=== PATIENT | male | born 1965 | race African-American/Black ===

== ENCOUNTER 2018-07-08 08:05 | Day surgery (SDC) | payer MEDICARE ==
[~2018-07-08] VITALS: Ht 167.6 cm; Wt 63.5 kg
--- NOTE | ~2018-07-08 | OP ---
PATIENT NAME: ANTONIO KWOK MEDICAL RECORD: [id number] :63 LOCATION:SUMMER ADMISSION DATE: SURGEON: ARPIT SANTO MD DATE OF OPERATION: 07/08/2018 REFERRED BY: Johnny Jacob MD PREOPERATIVE DIAGNOSES: End-stage renal disease and dependence on hemodialysis. POSTOPERATIVE DIAGNOSES: End-stage renal disease and dependence on hemodialysis. OPERATION PERFORMED: Implantation of a ProCol AV graft as a loop graft in the right forearm between the brachial artery and the median cubital vein with a "pinky pull" configuration. SURGEON: Arpit Santo MD ANESTHESIA: Regional nerve block and MAC per RETAIL MERCHANDISER. PREOPERATIVE NOTE: Mr. Kwok is a 53-year-old -[place] male from [place] who has end-stage renal disease and needs permanent access. He is brought to the operating room today in hopes that I can construct a right brachial artery to basilic vein Moreno type AV fistula, which could then be converted later to a translocated basilic vein fistula. Nerve block anesthetic is chosen in part for its vasodilatation effects. DESCRIPTION OF PROCEDURE: Under a regional block and IV sedation and monitored per RETAIL MERCHANDISER in the operating room in supine position on the OR table, the patient was prepped and draped in sterile manner. We used a Hussain drain as a proximal venous tourniquet and applied topical nitroglycerin paste. I did a duplex ultrasound examination of the veins of the upper arm and forearm and noted that they were too small and/or located too far from the ideal sites for creation of a fistula. The basilic vein was too small at the level of the antecubital space and really too small until going upwards I reached about the middle third of the humeral area. I elected to go ahead and do a forearm loop graft between the brachial artery and the median cubital vein. That vein drains to the brachial veins as well also as to the cephalic and basilic veins. I made a transverse incision and exposed the vein and artery. These were controlled with Silastic loops and treated with topical papaverine. I made a counter incision at the wrist and created a tunnel. I chose a standard ProCol prosthetic, which is a porcine mesenteric vein, it was washed and flushed with saline and heparinized saline as instructions described and it was then oriented properly, so far as the arterial inflow end and the venous outflow end. The venous anastomosis was done first. The graft was shortened and bevelled and the vein was opened and flushed proximally with heparinized saline. The anastomosis was then carried out with running 6-0 Prolene. The graft was then placed in the superficial hairpin shaped tunnel and brought back to the antecubital area where it was shortened and beveled and anastomosed end-to-side to the brachial artery. The artery having been opened and flushed proximally and distally with heparinized saline. That anastomosis also was done with running 6-0 Prolene. When completed, the graft functioned very well with a strong thrill and continuous pulsatile Doppler flow signals. There was preservation of Doppler pulsatile flow in the radial and ulnar arteries at the wrist. OPERATIVE REPORT [id number] ANTONIO KWOK The patient's wounds were irrigated with antibiotic solution, Ancef and gentamicin. They were then sutured with interrupted inverted 3-0 Vicryl and running intracuticular 4-0 Monocryl. They were further sealed with Dermabond glue and dressed with Maxorb Ag, Tegaderm, and Cavilon skin prep. The patient was then awakened and taken back to the recovery room. Blood loss during the operation was almost none or was very minimal. Sponges, instruments and needles were accounted for. No drain was used and no surgical specimen was submitted for histopathology. PLAN: The patient is to continue his home medications, diet and dialysis schedule, etc. He will return to see me in my office next week and he is given a prescription for 10 [place] 5/325 mg tablets. TRANSINT:[id number] Voice Confirmation ID: [id number] DOCUMENT ID: [id number] cc: [facility] [phone] ARPIT SANTO MD CC: JOHNNY JACOB MD and [facility] [phone] DICTATION DATE: 07/08/18 163 PAPER CUP MACHINE OPERATOR: 07/08/18 1759 [facility] 07/08/18 [facility] [address] [place] [address]
[2018-07-08 08:37] LABS: INR 1.15 (0.85-1.17); PROTIME 14.2 SECONDS (11.6-15.0)
[2018-07-08 08:47] LABS: ANION GAP 17.7 mmol/L (8-16); CALCIUM 9.2 mg/dL (8.5-10.1); CARBON DIOXIDE 24.1 mmol/L (21.0-32.0); CREATININE - SERUM 7.6 mg/dL (0.6-1.3); POTASSIUM - SERUM 5.8 mmol/L (3.5-5.1)
[2018-07-08 09:03] LABS: BASOPHILS 0.2 % (0-2); EOSINOPHILS 3.1 % (0-7); HEMATOCRIT 39.2 % (42.0-54.0); HEMOGLOBIN 12.9 g/dL (13.5-17.5); IMMATURE GRANULOCYTES 0.3 % (0-5); LYMPHOCYTES 35.1 % (15-50); MCH 29.1 pg (26.0-34.0); MCHC 32.9 g/dL (31.0-37.0); MCV 88.3 fL (80.0-100.0); MONOCYTES 10.5 % (2-11); NEUTROPHILS 50.8 % (40-80); PLATELET COUNT 165 10x3/uL (130-400); RBC 4.44 10x6/uL (4.20-6.10); WBC 9.8 10x3/uL (4.8-10.8)
[2018-07-08] MEDS ORDERED: CATAPRES TTS-10.1 MG TD (09:49)
[2018-07-08] MEDS ORDERED: LASIX80 MG PO (09:51)
[2018-07-08] MEDS ORDERED: TUMS X-STR300 MG PO (09:52)
[2018-07-08] MEDS ORDERED: [UNRECOGNIZED DRUG - CODE] (09:53)
[2018-07-08] MEDS ORDERED: PEPCID AC20 MG PO (09:54)
[2018-07-08] MEDS ORDERED: COREG12.5 MG PO (09:54)
[2018-07-08] MEDS ORDERED: CATAPRES0.1 MG PO (09:55)
[2018-07-08 10:08] VITALS: BP 184/92; Ht 167.6 cm; Wt 63.5 kg
[2018-07-08] MEDS ORDERED: HYDROCODON-ACE1 EAC7 PO (16:36)
--- NOTE | 2018-07-08 17:40 | NUR ---
LEFT HAND PIV DC'D WITH TIP INTACT. AWAITING [id number] TO ARRIVE TO PROVIDE TRANSPORTATION. ASSISTED PATIENT TO DRESS IN PERSONAL CLOTHING. SLING KEPT ON RIGHT UPPER EXTREMITY. EDUCATION PROVIDED ABOUT IMPORTANCE OF SLING BEING LEFT ON AT ALL TIMES UNTIL NERVE BLOCK WEARS OFF
--- NOTE | 2018-07-08 17:55 | NUR ---
DISCHARGED HOME VIA WHEELCHAIR TO PRIVATE VEHICLE WITH SON AND [id number]
== END 2018-07-08 17:55 | disposition home or self-care (01) ==
LOC: D.OPS 08:05
PROVIDERS: Surgery; ATTEND Internal Medicine Nephrology
DX: N18.6 End stage renal disease (principal); Z99.2 Dependence on renal dialysis; Z01.812 Encounter for preprocedural laboratory examination

== ENCOUNTER 2018-09-02 09:12 | Day surgery (SDC) | payer MEDICARE ==
[~2018-09-02 09:12] MED LIST: CATAPRES TTS-10.1 MG TD; CATAPRES0.1 MG PO; COREG12.5 MG PO; HYDROCODON-ACE1 EAC7 PO; LASIX80 MG PO; PEPCID AC20 MG PO; TUMS X-STR300 MG PO; [UNRECOGNIZED DRUG - CODE]
[2018-09-02 09:30] LABS: BASOPHILS 0.1 % (0-2); EOSINOPHILS 1.7 % (0-7); HEMATOCRIT 37.2 % (42.0-54.0); HEMOGLOBIN 12.6 g/dL (13.5-17.5); IMMATURE GRANULOCYTES 0.1 % (0-5); LYMPHOCYTES 32.2 % (15-50); MCH 30.7 pg (26.0-34.0); MCHC 33.9 g/dL (31.0-37.0); MCV 90.5 fL (80.0-100.0); MEAN PLATELET VOLUME 10.6 fL (7.4-10.4); MONOCYTES 13.1 % (2-11); NEUTROPHILS 52.8 % (40-80); PLATELET COUNT 147 10x3/uL (130-400); RBC 4.11 10x6/uL (4.20-6.10); RDW 17.3 % (11.5-14.5); WBC 7.6 10x3/uL (4.8-10.8)
[2018-09-02 09:42] LABS: ANION GAP 11.6 mmol/L (8-16); CALCIUM 8.9 mg/dL (8.5-10.1); CREATININE - SERUM 9.2 mg/dL (0.6-1.3); POTASSIUM - SERUM 4.6 mmol/L (3.5-5.1)
[2018-09-02 09:55] LABS: INR 1.05 (0.85-1.17); PROTIME 13.2 SECONDS (11.6-15.0)
[2018-09-02] MEDS ORDERED: RENA-VITE TABL0.8 MG PO (11:07)
[2018-09-02] MEDS ORDERED: HYDRALAZINE HCL50 MG PO (11:08)
[2018-09-02] MEDS ORDERED: RENVELA800 MG PO (11:09)
[2018-09-02] MEDS ORDERED: ACETAMINOPHEN500 M1 PO (11:10)
[2018-09-02 11:21] VITALS: BP 202/76; BMI 21.9
--- NOTE | 2018-09-02 11:27 | NUR ---
ELEVATED BP REPORTED TO ANESTHESIA
[2018-09-02] MEDS ORDERED: HYDROCODON-ACE1 EAC7 PO (17:16)
--- NOTE | 2018-09-02 18:50 | NUR ---
DISCHARGED HOME VIA WHEELCHAIR TO PRIVATE VEHICLE WITH SON
--- NOTE | 2018-09-05 10:36 | OP ---
PATIENT NAME: ANTONIO KWOK MEDICAL RECORD: [id number] :63 LOCATION:SUMMER ADMISSION DATE: SURGEON: ARPIT SANTO MD DATE OF OPERATION: 09/02/2018 PREOPERATIVE DIAGNOSES: End-stage renal disease and dependence on hemodialysis and thrombosis of right forearm loop arteriovenous graft. POSTOPERATIVE DIAGNOSES: End-stage renal disease and dependence on hemodialysis and thrombosis of right forearm loop arteriovenous graft. OPERATION PERFORMED: Creation of a right brachial artery to basilic vein Moreno type AV fistula in preparation for creation of a translocated basilic vein fistula. SURGEON: Arpit Santo MD ANESTHESIA: Regional nerve block per THOMAS and general with LMA per THOMAS and Dr. De Luna. REFERRING PHYSICIAN: Johnny Moon MD PREOPERATIVE NOTE: Mr. Kwok is a 53-year-old male who has end-stage renal disease and is on chronic hemodialysis at the [facility] in [place]. I fairly recently implanted a ProCol loop AV graft in the right forearm and that failed and he is brought back to the operating room now to try to create a new fistula or implant a graft in the right upper arm. DESCRIPTION OF PROCEDURE: Under anesthesia in the supine position, the patient was prepped and draped in sterile manner. A proximal venous tourniquet was applied and nitroglycerin paste applied to the skin of the arm and forearm. Ultrasound examination demonstrated a satisfactory basilic vein in the upper arm down to the antecubital space with an adequate brachial artery for a brachiobasilic fistula. The cephalic vein was a little smaller and also had a branching pattern that would not really lend itself for creation of a brachiocephalic fistula in the antecubital space or near there and certainly not to the proximal radial artery, so I opted to go ahead with creation of the basilic vein fistula. I made a longitudinal incision on the inside of the arm just above the elbow and exposed the vein and then exposed the brachial artery. The artery was controlled with doubly looped Silastic tapes. The vein was dissected to a distal point where it was ligated and divided and bevelled and treated with topical papaverine and flushed with heparinized saline and prepared for anastomosis. The artery was occluded and an arteriotomy of about 6 or 7 mm was made and the artery was flushed proximally and distally with heparinized saline. The anastomosis was performed end-to-side and the vein to side of artery with continuous running 7-0 Prolene. When completed, excellent flow was present in the new fistula and the AV fistula had a very nice geometry. There was good pulsatile flow in the brachial artery distal to the anastomosis and good pulsatile flow in the radial artery at the wrist. The wound was irrigated with Ancef/gentamicin solution and then closed without the use of a drain approximating subcutaneous tissues with both interrupted and inverted 3-0 Vicryl sutures and the skin was closed with a running intracuticular 4-0 Stratafix. The incision was sealed with glue and dressed with Maxorb Ag, Tegaderm, and OPERATIVE REPORT [id number] ANTONIO KWOK skin prep and the patient at that point awakened and taken to the recovery room. Blood loss during the operation was almost none. All sponges, instruments and needles were accounted for. No drain was used and no surgical specimen was submitted for histopathology. PLAN: For the patient to be discharged from the hospital this evening and follow up with me in my office in 7-10 days. I will be removing his dressing and examine his wound at that time, he can leave the original operative dressing intact until then. He is to continue all of his home medications and his usual dialysis schedule. He will wear in his arm in a sling until the function resumes as his block wears off and then he is to not wear the sling after that and resume activities as tolerated with his arm. He is given a prescription for 10 tablets of [place] 5/325. He can take 1 every 4 hours p.r.n. for pain. TRANSINT:[id number] Voice Confirmation ID: [id number] DOCUMENT ID: [id number] cc: [facility] ARPIT SANTO MD at 1036 CC: JOHNNY MOON MD and Y [phone] DICTATION DATE: 09/02/18 1733 LABOR OPERATOR: 09/03/18 0545 [facility] 09/02/18 [facility] [address] [place] [address]
== END 2018-09-02 18:50 | disposition home or self-care (01) ==
LOC: D.OPS 09:12
PROVIDERS: Surgery; ATTEND Internal Medicine Nephrology
DX: T82.868A Thrombosis due to vascular prosthetic devices, implants and grafts, initial encounter (principal); Y83.8 Other surgical procedures as the cause of abnormal reaction of the patient, or of later complication, without mention of misadventure at the time of the procedure; N18.6 End stage renal disease; Z99.2 Dependence on renal dialysis

== ENCOUNTER 2018-10-14 08:30 | Day surgery (SDC) | payer MEDICARE ==
[~2018-10-14] VITALS: Ht 165.1 cm; Wt 67.6 kg
--- NOTE | ~2018-10-14 | OP ---
PATIENT NAME: ANTONIO KWOK MEDICAL RECORD: [id number] :63 LOCATION:SUMMER ADMISSION DATE: SURGEON: ARPIT SANTO MD DATE OF OPERATION: 10/14/2018 REFERRING PHYSICIAN: Johnny Jacob MD PREOPERATIVE DIAGNOSES: End-stage renal disease and dependence on hemodialysis. POSTOPERATIVE DIAGNOSES: End-stage renal disease and dependence on hemodialysis. OPERATION PERFORMED: Planned revision of right arm brachiobasilic AV fistula with open revision without thrombectomy. PREOPERATIVE NOTE: Mr. Kwok is a 53-year-old -[place]kin[place] male with end-stage renal disease, who is catheter dependent with a right-sided tunneled dialysis catheter at present. He has had a right brachiobasilic fistula constructed a few weeks ago and is returned to the operating room at this time as planned for translocation procedure. DESCRIPTION OF PROCEDURE: Under anesthesia in supine position, the patient was prepped and draped in a sterile manner. I examined him with ultrasound and outlined the course of the basilic vein from axilla to antecubital space and then made a long incision on the medial aspect of the arm and I mobilized the basilic vein from axilla down to the scar from the last operation. I then carefully extended the incision distally and began dissecting the basilic vein from the surrounding tissues. This portion of the vein was the JA segment and it was very inflamed with a great deal of surrounding fat necrosis and I really found that I was not able to dissect it with any confidence and I felt that if we were going to use this segment and all, I probably needed to leave it in situ. The vein was generally of good caliber a centimeter or more in diameter and high quality from the point of the JA segment proximally. I opted to close the wound deep to the vein and leave the vein and a very superficial subcutaneous plane to be accessed there. The wound was irrigated with Ancef and gentamicin solution, infiltrated and irrigated with Marcaine 0.25% plain and the superficial fascia of the arm approximated with interrupted inverted 3-0 Vicryl sutures tied deep to the vein. The vein was treated with topical papaverine several times during this. I then closed the skin with a running intracuticular 4-0 Stratafix suture, again leaving the vein immediately beneath the skin. There was excellent pulsation and bruit in the vein and a good continuous pulsatile Doppler signal. The incision was further sealed and dressed with a DuoDERM glue and dressed with Maxorb AG and Tegaderm, and Cavilon skin prep. The patient was awakened and taken to the recovery room with a functioning and hopefully usable AV access in the arm. PLAN: He will go home later today. I will give him a prescription for 10 [place] 5/325 tablets. He will have a return appointment to see me in my office in about 10 days. Hopefully, he can leave the original operative dressing intact until then. If need be, he can come into the office before his scheduled appointment for wound check and dressing change. Caution; the operation, as I have performed today, leads the fistula directly on top of the brachial artery and median nerve and other structures, which will then be liable to injury during cannulation of the fistula. It will be very OPERATIVE REPORT [id number] ANTONIO KWOK important for his dialysis caregivers to understand that the needles should be introduced almost parallel to the skin and that the vein is really quite superficial and they need not go deeply into the arm. TRANSINT:[id number] Voice Confirmation ID: [id number] DOCUMENT ID: [id number] ARPIT SANTO MD CC: JOHNNY JACOB MD [id number] DICTATION DATE: 10/14/18 1251 MINING DETAIL DRAFTSPERSON: 10/14/[address] [facility] [address] [place] [id number]
[~2018-10-14 08:30] MED LIST changes: +ACETAMINOPHEN500 M1 PO; +HYDRALAZINE HCL50 MG PO; +RENA-VITE TABL0.8 MG PO; +RENVELA800 MG PO
[2018-10-14 09:00] LABS: BASOPHILS 0 % (0-2); EOSINOPHILS 0.9 % (0-7); HEMATOCRIT 31.8 % (42.0-54.0); HEMOGLOBIN 10.8 g/dL (13.5-17.5); IMMATURE GRANULOCYTES 0.3 % (0-5); MCV 94.1 fL (80.0-100.0); MEAN PLATELET VOLUME 10.4 fL (7.4-10.4); MONOCYTES 18.2 % (2-11); NEUTROPHILS 57.6 % (40-80); PLATELET COUNT 125 10x3/uL (130-400); RBC 3.38 10x6/uL (4.20-6.10); RDW 17.7 % (11.5-14.5); WBC 7.9 10x3/uL (4.8-10.8)
[2018-10-14 09:22] LABS: CALCIUM 8.4 mg/dL (8.5-10.1); CARBON DIOXIDE 30.3 mmol/L (21.0-32.0); CREATININE - SERUM 6.4 mg/dL (0.6-1.3); POTASSIUM - SERUM 4.3 mmol/L (3.5-5.1)
[2018-10-14 09:26] LABS: INR 1.15 (0.85-1.17); PROTIME 14.2 SECONDS (11.6-15.0)
[2018-10-14 09:47] VITALS: BP 167/81; Ht 165.1 cm; Wt 67.6 kg
== END 2018-10-14 15:20 | disposition home or self-care (01) ==
LOC: D.OPS 08:30
PROVIDERS: Surgery; ATTEND Internal Medicine Nephrology
DX: N18.6 End stage renal disease (principal)

== ENCOUNTER 2019-05-06 18:00 | Inpatient (IN) | payer MEDICARE ==
[~2019-05-06] VITALS: Ht 165.1 cm; Wt 58.1 kg
--- NOTE | ~2019-05-06 | EC ---
PATIENT:ANTONIO WAKEFIELD DATE OF SERVICE: 05/06/19 SEX: M MEDICAL RECORD: [id number] DATE OF : 63 LOCATION:D.M2 D.211 AGE OF PATIENT: 54 ADMISSION DATE: 05/06/19 REFERRING PHYSICIAN: INTERPRETING PHYSICIAN: KURT QUIROS MD ECHOCARDIOGRAM REPORT ECHO CHARGES 4 ECHO COMPLETE Date: 05/07/19 CLINICAL DIAGNOSIS: DIALATED CARDIOMYOPATHY ECHOCARDIOGRAPHIC MEASUREMENTS (adult normal given) AC root (d.<3.7cm) 3.2 cm LV Septum d (<1.2 cm> 1.4 cm Valve Excursion 1.7 cm LV Septum (systole) 1.8 cm Left Atria (s.<4.0cm> 4.9 cm LVPW d(<1.2cm) 1.5 cm RV (d.<2.3cm) 3.7 cm LVPW (sytole) 1.9 cm LV diastole(<5.6CM) 5.2 cm MV E-F(>70mm/sec) cm LV systole 3.4 cm LVOT Diameter 1.8 cm MV exc.(>10mm) 1.2 cm Est.ejection fraction (50-75%) % DOPPLER: LVIT cm/sec A 84.0 cm/sec E 112.0 cm/sec LA cm/sec RVSP 33 mmHg LVOT 95 cm/sec AOP1/2T m/s Asc. Ao 131 cm/sec RVOT 97 cm/sec RA cm/sec PA 112 cm/sec AV Gradient Peak 6.86 mmHg AV Mean 3.50 mmHg AV Area 1.8 cm MV Gradient Peak 7.17 mmHg MV Mean 2.26 mmHg MV Area cm COMMENTS: [employer] Tester: Xiang HUITRON Supervisor Operations: Adilene Quiros TAPE# PACS Pericardial Effusion N DATE OF SERVICE: 05/07/2019 FINDINGS: 1. Left ventricular chamber size is within normal limits. Left ventricular systolic function is normal at 55% to 60%. 2. Left atrium is enlarged at 4.9 cm. Right atrium and right ventricular chamber sizes are as well mildly dilated. 3. Valvular structures have normal structure and motion. 4. Doppler interrogation reveals mild mitral regurgitation, mild tricuspid regurgitation, no other valvular insufficiency or stenosis. Pulmonary systolic ECHOCARDIOGRAM REPORT [id number] ANTONIO WAKEFIELD pressure is estimated at 33 mmHg. 5. No evidence of pericardial effusion or left ventricular thrombus. TRANSINT:[id number] Voice Confirmation ID: [id number] DOCUMENT ID: [id number] KURT QUIROS MD CC: [id number] DICTATION DATE: 05/08/19 1001 BUS ASSISTANT: 05/08/[address] [facility] [address] [place] [id number]
--- NOTE | ~2019-05-06 | OP ---
PATIENT NAME: ANTONIO WAKEFIELD MEDICAL RECORD: [id number] :63 LOCATION:D.M2 D.2116 ADMISSION DATE:05/06/19 SURGEON: KURT OWUSU MD DATE OF OPERATION: 05/08/2019 PROCEDURES: 1. PTCA and stent to the LAD. 2. PTCA and stent to the RCA. 3. IFR. 4. Left heart catheterization. 5. Selective coronary angiography. 6. Left ventriculogram. INDICATIONS: Unstable angina and coronary artery disease. PROCEDURE IN DETAIL: After informed consent was obtained and after a detailed description of the risks, benefits as well as alternative therapies, the patient elected to proceed with angiogram and angioplasty. The right femoral area was prepped and draped in normal sterile fashion. Right femoral artery was cannulated via modified Seldinger technique with placement of 6-Azeri sheath. All catheters exchanged through this sheath. FINDINGS: Left ventriculogram was performed in standard 30-degree LOCKWOOD view, reveals good cardiac wall motion, ejection fraction is 60%. SELECTIVE CORONARY ANGIOGRAPHY: 1. Left main is with no significant angiographic disease. 2. Left anterior descending has 90% to 95% stenosis in the mid vessel. 3. Left circumflex has eddg-[id number]-pfpizsog irregularities but no flow-limiting stenosis. 4. Right coronary has 80% stenosis times 2 in the mid vessel. IFR is abnormal. PTCA AND STENT OF THE RCA: The stent used was 3.0 x 15 and 3.0 x 38. Result was 0% residual stenosis. PTCA AND STENT OF THE LAD: The stent used was a 2.75 x 22. Result was 0% residual stenosis. OVERALL IMPRESSION: Successful PTCA stent of the LAD and RCA, both going from 80% and 95% initial stenosis to 0% residual. TRANSINT:[id number] Voice Confirmation ID: [id number] DOCUMENT ID: [id number] KURT OWUSU MD CC: [id number] DICTATION DATE: 05/08/19 145 FARMWORKER FRUIT: 05/08/192125 ADM IN [place] [id number] [place] [address]
--- NOTE | ~2019-05-06 | CN ---
PATIENT NAME:ANTONIO KWOK MEDICAL RECORD: [id number] : 63 LOCATION:[facility] D.2117 ADMIT DATE: 05/06/19 ACCOUNT: [id number] CONSULTING PHYSICIAN: KURT OWUSU MD REFERRING PHYSICIAN: PAO CHAVEZ MD DATE OF CONSULTATION: 05/07/2019 DIAGNOSES: 1. Non-Q-wave myocardial infarction. 2. Coronary artery disease. 3. Cardiomyopathy. 4. Hypertension. 5. End-stage renal failure, dialysis. HISTORY OF PRESENT ILLNESS: Mr. Kwok has a history of a cardiomyopathy; however, does not have a history of ischemic heart disease and has not had previous myocardial infarction or stents, began having chest discomfort for the past 48 hours. His troponin is positive for non-Q-wave myocardial infarction. His EKG is with no acute ST-T abnormalities. PHYSICAL EXAMINATION: CONSTITUTIONAL/GENERAL APPEARANCE: Well nourished, well developed, appears stated age. EYES: Lids and conjunctivae noninjected. No discharge. No pallor. ENT: Lips within normal limit. No cyanosis. No pallor. NECK: Carotid arteries, bilateral normal upstroke. No bruits. No thrills. No jugular venous pressure or distention. CERVICAL LYMPH NODES: Nontender. Nonenlarged. THYROID: Not enlarged. No nodules. CARDIOVASCULAR: Precordial exam, nondisplaced. No heaves or pericardial thrills. Rate and rhythm, regular. Heart sounds, normal S1, normal S2. No S3, no gallop, no rub. Systolic murmur, not heard. Diastolic murmur, not heard. RESPIRATORY: Respiratory effort, unlabored. Normal curvature. No thoracic deformity. No chest wall tenderness. Percussion, resonant. Auscultation, clear. No wheezes, no rales, no rhonchi. ABDOMEN: Soft, nondistended, nontender. No abdominal pain, no vomiting and normal appetite. MUSCULOSKELETAL: No joint tenderness, normal gait, normal tone. SKIN: Warm and dry. OVERALL IMPRESSION: Non-Q-wave myocardial infarction. At this time, we will get an echocardiogram today to reassess his ejection fraction, load him with Plavix. Plan for cardiac catheterization in the a.m. TRANSINT:[id number] Voice Confirmation ID: [id number] DOCUMENT ID: [id number] KURT OWUSU MD CC: [id number] DICTATION DATE: 05/07/19 1021 MILLER HELPER DISTILLERY: 05/07/19 1200 ADM IN [facility] [address] [facility]
--- NOTE | ~2019-05-06 | HEMODYNAMI ---
PATIENT:ANTONIO WAKEFIELD MEDICAL RECORD: [id number] : 63 LOCATION:[place] [address] ADMISSION DATE: 05/06/19 Generatedon:05/08/201915:10 Patient name: ANTONIO WAKEFIELD Patient #: [id number] SSN: : 1965 Date of study: 05/08/2019 Page: Of Hemodynamic Procedure Report Patient Data Patient Demographics Procedure consent was obtained First Name: ANTONIO Gender: Male Last Name: ASHU : 1965 Patient #: [id number] Age: 54 year(s) Race: Black Additional ID: [id number] Contact details [address]: [address] [place] [address] State: [place] City: [place] Zip code: [address] Past Medical History Allergies: No known allergies Admission Admission Data Admission Date: 05/06/2019 Admission Time: 19:25 Room #: [facility] Height (in.): 65 BSA: 1.64 (m2) Height (cm.): 165.1 BMI: 21.3 (kg/m2) Weight (lbs.): 128 Weight (kg.): 58.06 Lab Results Lab Result Date: 05/08/2019 Lab Result Time: 0:00 Biochemistry Name Units Result Min Max BUN mg/dl 63 --(----)-* 7 18 Creatinine mg/dl 8.8 --(----)-* 0.6 1.3 eGFR ml/min 7.565334 *-(----)-- 90 120 AM CBC Name Units Result Min Max Hematocrit % 26 *-(----)-- 42 54 Hemoglobin g/dl 8.9 *-(----)-- 13.5 17.5 Procedure Procedure Types Cath Procedure Diagnostic Procedure [facility] w/Coronaries FFR/IVUS FFR Initial FFR Additional Sedation Charges Moderate Sedation up to 15 minutes PCI Procedure Coronary Stent Coronary Stent Initial x2 Hemochron ACT Test Procedure Description Procedure Date Procedure Date: 05/08/2019 Procedure Start Time: 14:27 Procedure End Time: 15:03 Procedure Staff Name Function Pradip Quiros MD Performing Physician Ruchi Le RT Monitor Josseline Smith RT Scrub All Workman RN Nurse Procedure Data Cath Procedure Fluoroscopy Diagnostic fluoroscopy Total fluoroscopy Time: 5.7 time: 5.7 min min Diagnostic fluoroscopy Total fluoroscopy dose: 306 dose: 306 mGy mGy Contrast Material Contrast Material Type Amount (ml) Isovue 300 123 Entry Location Entry Primary Successful Side Size Upsize Upsize Entry Closure Succes sful Closure Location (Fr) 1 (Fr) 2 (Fr) Remarks Device Remarks Femoral Right 5 Fr 6 Fr Exoseal artery Short Estimated blood loss: 10 ml Diagnostic catheters Device Type Used For End Catheter Placement MULTIPACK Pigtail 5 Fr Procedure catheter MULTIPACK JL 4.0 5Fr Procedure catheter MULTIPACK 3DRC 5Fr Procedure catheter Procedure Complications No complications Procedure Medications Medication Administration Route Dosage Oxygen etCO2 Nasal cannula 2 l/min Heparin Flush Bag added to field 2 bags (1000units/500ml NS) 0.9% NaCl I.V. 100 ml/hr Lidocaine 2% added to field 20 Fentanyl I.V. 50 mcg Versed I.V. 1 mg Fentanyl I.V. 50 mcg Versed I.V. 1 mg Heparin Bolus I.V. 4000 units Integrilin (Bolus I.V. 5 ml 2mg/ml) Integrilin (Bolus wasted 5 ml 2mg/ml) Plavix P.O. 600 mg Clonidine P.O. 0.2 mg Hemodynamics Rest BSA: 1.64 (m2) O2 Consumption: Estimated: 191.26 (ml/min) O2 Consumption indexed : Estimated:116.62 (ml/min/m) Heart Rate: 65 (bpm) Snapshots Pre Cath Intra NCS Post Cath Vital Signs Time Heart Resp SPO2 etCO2 NIBP (mmHg) Rhythm Pain Sedation Rate (ipm) (%) (mmHg) Status Level (bpm) 14:17:54 63 16 100 26.2 Measuring NSR (Missing) 10(A) 14:18:17 66 16 100 24.7 221/105(187) NSR (Missing) 10(A) 14:22:49 66 16 100 26.2 207/103(173) NSR (Missing) 10(A) 14:27:16 63 16 100 7.4 204/100(174) NSR (Missing) 9(A) 14:31:42 68 16 100 22.4 213/105(174) NSR (Missing) 9(A) 14:36:13 67 16 100 20.2 214/98(179) NSR (Missing) 9(A) 14:40:43 71 17 100 20.2 187/101(156) NSR (Missing) 9(A) 14:45:42 68 16 100 20.9 Measuring NSR (Missing) 9(A) 14:46:17 68 16 100 14.2 203/108(175) NSR (Missing) 9(A) 14:50:43 67 17 100 32.2 210/108(172) NSR (Missing) 9(A) 14:55:11 68 17 100 28.4 208/99(168) NSR (Missing) 9(A) 14:59:39 68 17 100 24.7 210/101(173) NSR (Missing) 9(A) Medications Time Medication Route Dose Verified Delivered Reason Notes Effectiveness by by 14:19:12 Oxygen etCO2 2 Pradip Carrizales Per physician Nasal l/min Ishaan Workman RN cannula 14:19:20 Heparin Flush added 2 Pradip All used for Bag to bags Ishaan Workman RN procedure (1000units/500ml field NS) 14:19:30 0.9% NaCl I.V. 100 Pradip All Per physician ml/hr Ishaan Workman RN 14:19:40 Lidocaine 2% added 20ml Pradip Carrizales for local to vial Ishaan Workman RN anesthetic field 14:25:31 Fentanyl I.V. 50 Pradip Ordazy for sedation mcg Ishaan Workman RN 14:25:38 Versed I.V. 1 mg Pradip Ordazy for sedation Ishaan Workman RN 14:29:05 Fentanyl I.V. 50 Pradip All for sedation mcg Ishaan Workman RN 14:29:08 Versed I.V. 1 mg Pradip All for sedation Ishaan Workman RN 14:33:23 Heparin Bolus I.V. 4000 Pradip Carrizales for units Ishaan Workman RN anticoagulation 14:34:44 Integrilin I.V. 5 ml Pradip Carrizales for (Bolus 2mg/ml) Tauth MD Workman RN anticoagulation 14:40:05 Integrilin wasted 5 ml Pradip salazar (Bolus 2mg/ml) Ishaan Workman RN anticoagulation 15:02:23 Plavix P.O. 600 Pradip salazar mg Ishaan Workman RN antiplatelet therapy 15:07:32 Clonidine P.O. 0.2 Pradip Carrizales for mg Ishaan Workman RN hypertension Procedure Log Time Note 13:49:40 Informed consent obtained and on chart 13:50:23 Procedure Status Urgent Heart Cath (IP). 13:50:28 Time tracking: Regular hours (M-F 7:00 - 5:00) 13:50:32 Plan of Care:Hemodynamics will remain stable., Cardiac rhythm will remain stable., Comfort level will be maintained., Respiratory function will remain adequate., Patient/ family verbilizes understanding of procedure., Procedure tolerated without complication., Recovers from procedure without complications.. 13:51:52 H&P Date Dictated: 05/08/2019 Within 30 days and on chart.. 13:51:58 Patient allergic to No known allergies 13:53:28 Lab Result : BUN 63 mg/dl 13:53:28 Lab Result : Creatinine 8.8 mg/dl 13:53:28 Lab Result : eGFR AM 7.026079 ml/min 13:53:28 Lab Result : Hemoglobin 8.9 g/dl 13:53:28 Lab Result : Hematocrit 26 % 13:54:02 Patient Height : 65 inches 13:54:07 Patient Weight : 128 lbs 13:55:36 All Workman RN sent for patient. Start room use. 13:59:29 Risk of Mortality: 1.3 13:59:32 Risk of blood transfusion: 12.5 13:59:36 Risk of AMARILIS: 16.8 14:04:40 Stress Test: no; N/A NSTEMI 14:09:54 Patient received from Med II to CCL 3 Alert and oriented. Tansferred to table in Supine position. 14:09:56 Warm blankets applied, and deep hugger turned on for patient comfort. 14:09:56 Correct patient and procedure confirmed by team. 14:09:57 ECG and BP/O2 sat monitors applied to patient. 14:16:05 Vital chart was started 14:19:12 Oxygen 2 l/min etCO2 Nasal cannula was administered by All Workman RN; Per physician; Verbal order read back and verified. 14:19:15 Full Disclosure recording started 14:19:15 Pre-procedure instructions explained to patient. 14:19:16 Pre-op teaching completed and patient verbalized understanding. 14:19:19 Family in patients room. 14:19:20 Heparin Flush Bag (1000units/500ml NS) 2 bags added to field was administered by All Workman RN; used for procedure; Verbal order read back and verified. 14:19:21 Patient NPO since Midnight. 14:19:23 Is the patient allergic to Iodine/contrast media? No. 14:19:24 Is patient on blood thinner?No 14:19:26 Patient diabetic? No. 14:19:30 0.9% NaCl 100 ml/hr I.V. was administered by All Workman RN; Per physician; Verbal order read back and verified. 14:19:30 Previous problem with sedation/anesthesia? No ? 14:19:31 Snore? No 14:19:32 Sleep apnea? No 14:19:34 Deviated septum? No 14:19:34 Opens mouth fully? Yes 14:19:35 Sticks out tongue? Yes 14:19:39 Airway obstruction? No ? 14:19:40 Lidocaine 2% 20ml vial added to field was administered by All Workman RN; for local anesthetic; Verbal order read back and verified. 14:19:42 Dentures? No ? 14:19:52 Rhythm: sinus rhythm 14:19:59 Pre procedure: right dorsailis pedis pulse 1+ Palpable, but thready & weak; easily obliterated 14:20:01 Patient pain scale 0/10 ?. 14:20:05 IV patent on arrival in left antecubital with 0.9% NaCl at [facility]. 14:20:08 Lab results completed and on chart. 14:20:12 Right groin area was prepped with chlora-prep and draped in sterile fashion 14:20:13 Alarms reviewed by R. N. 14:20:13 Sharps counted by scrub and verified by R.N. 14:20:25 DIALYSIS FISTULA RIGHT ARM 14:23:08 Use device set Femoral Dx 14:23:10 ACIST Syringe (16961) opened to sterile field. 14:23:10 Bag Decanter (2002S) opened to sterile field. 14:23:11 ACIST Hand Control (28929) opened to sterile field. 14:23:11 ACIST Manifold (03266) opened to sterile field. 14:23:12 Tegaderm 4 x 4 (1626W) opened to sterile field. 14:23:13 Medline Cath Pack ([id number]) opened to sterile field. 14:23:14 DIAGNOSTIC Multipack 5Fr catheter set (DG9935) opened to sterile field. 14:23:20 SHEATH 5FR [place] (CRD425) opened to sterile field. 14:23:21 EMERALD Guide Wire (848-555) opened to sterile field. 14:24:22 Baseline sample Acquired. 14:24:38 Baseline sample Acquired. 14::28 --------ALL STOP TIME OUT------ 14:25:29 Final Timeout: patient, procedure, and site verified with staff and physician. All members of the team are in agreement. 14:25:30 Right groin site verified by team. 14::31 Fentanyl 50 mcg I.V. was administered by All Workman RN; for sedation; Verbal order read back and verified. 14:25:35 Fire Safety Assessment: A--An alcohol-based skin anteseptic being used preoperatively., C--Open oxygen or nitrous oxide is being used., D--An ESU, laser, or fiber-optic light is being used. 14:25:37 Physical assessment completed. ASA score P 3 - A patient with severe systemic disease as per Pradip Quiros MD. 14::38 Versed 1 mg I.V. was administered by All Workman RN; for sedation; Verbal order read back and verified. 14::41 5) <15 or on dialysis Very severe, or end stage kidney failure. 14:25:45 Sedation plan: IV Moderate Sedation Medication:Versed, Fentanyl 14:26:06 Maximum allowable contrast dose (3.7 X eGFR X 0.75)22 ml. 14::58 Zero performed for pressure channel P1 14:27:02 Procedure started. 14:27:14 Local anesthetic to right femoral artery with Lidocaine 2% by Pradip Quiros MD.INITIAL ACCESS ONLY 14:27:47 A 5 Fr sheath was inserted into the Right Femoral artery 14::59 A MULTIPACK Pigtail 5 Fr catheter was advanced over the wire and used for Procedure. 14:28:22 LV gram done using LOCKWOOD 14::24 Injector settings: Ml/sec: 10, Volume: 20, 14::52 EF : 55 % 14:28:57 Catheter removed. 14:29:05 Fentanyl 50 mcg I.V. was administered by All Workman RN; for sedation; Verbal order read back and verified. 14:29:08 Versed 1 mg I.V. was administered by All Workman RN; for sedation; Verbal order read back and verified. 14:29:10 A MULTIPACK JL 4.0 5Fr catheter was advanced over the wire and used for Procedure. 14:29:58 LCA angiography performed. 14:30:36 Catheter removed. 14:30:46 A MULTIPACK 3DRC 5Fr catheter was advanced over the wire and used for Procedure. 14:31:17 RCA angiography performed. 14:31:23 ACCDominant side:Left 14:31:24 Catheter removed. 14:31:25 SHEATH 6FR [place] (HMO818) opened to sterile field. 14:31:27 [place] Verrata Plus pressure wire (26122Y) opened to sterile field. 14:31:28 INFLATOR Merit BasixCompak (PR3369) opened to sterile field. 14:31:52 GUIDE 6FR EBU 3.5 catheter ([id number]) opened to sterile field. 14:31:59 Sheath upsized to a 6 Fr Short. 14:32:39 GUIDE 6FR HS II catheter (LF0VVAK) opened to sterile field. 14:32:48 6 Fr EBU 3.5 guide catheter was inserted over the wire 14:33:23 Heparin Bolus 4000 units I.V. was administered by All Workman RN; for anticoagulation; Verbal order read back and verified. 14:33:27 FFR/IFR wire advanced. 14:34:02 Wire advanced across lesion. 14:34:35 pRCA lesion measured at .90 with IFR 14:34:44 Integrilin (Bolus 2mg/ml) 5 ml I.V. was administered by All Workman RN; for anticoagulation; Verbal order read back and verified. 14:36:02 dRCA lesion measured at .81 with IFR 14:36:48 Pre PCI Site: [place] dRCA has 70% stenosis. 14:37:05 Place stent Inflation Number: 1 A GARETT RX 3.0 x 15 stent ([id number]) was prepped and advanced across the Dist RCA . The stent was deployed at 13 TEE for 0:00 (min:sec) . 14:37:34 Inflation number: 2 The stent balloon was then re-inflated across the Dist RCA to 11 TEE for 0:00 (min:sec) . 14:38:41 Stent catheter was removed intact over wire. 14:39:56 Place stent Inflation Number: 3 A GARETT RX 2.75 x 38 stent ([id number]) was prepped and advanced across the Dist RCA . The stent was deployed at 13 TEE for 0:00 (min:sec) . 14:40:05 Integrilin (Bolus 2mg/ml) 5 ml wasted was administered by All Workman RN; for anticoagulation; Verbal order read back and verified. 14:40:19 Stent catheter was removed intact over wire. 14:40:20 Wire removed. 14:40:20 Guide catheter removed. 14:41:04 6 Fr EBU 3.5 guide catheter was inserted over the wire 14:41:50 CHOICE PT Extra Support 182cm wire ([id number]) opened to sterile field. 14:41:58 Pre PCI Site: [place] mLAD has 90% stenosis. 14:42:17 CHOICE ES 182 wire advanced. 14:43:02 Wire advanced across lesion. 14:43:33 Inflation number: 1 The stent balloon was then re-inflated across the Mid LAD to 13 TEE for 0:00 (min:sec) . 14:43:57 Balloon removed over the wire. 14:45:11 Place stent Inflation Number: 2 A GARETT RX 2.75 x 22 stent ([id number]) was prepped and advanced across the Mid LAD . The stent was deployed at 21 TEE for 0:00 (min:sec) . 14:45:26 Stent catheter was removed intact over wire. 14:45:36 Wire removed. 14:45:37 Guide catheter removed. 14:45:57 EXOSEAL 6Fr (EX600) opened to sterile field. 14:46:12 Sheath removed intact; hemostasis achieved with Exoseal to the Right Femoral artery. 14:46:14 Procedure ended.(Physican Out) 14:46:26 ACT drawn and resulted at 361 seconds. (normal therapeutic range 180-240 seconds). 14:46:33 Fluoroscopy time 05.70 minutes. 14:46:39 Fluoroscopy dose: 306 mGy 14:46:39 Flurop Dose total: 306 14:46:44 Dose Area Product 1882.70 mGy/cm. 14:46:48 Contrast amount:Isovue 300 123ml. 14:46:50 Maximum allowable dose exceeded? Yes. 14:46:51 Sharps counted by scrub and verified by R.N. 14:48:27 Post-op/insertion site Right Femoral artery dressed using a 4 x 4 and Tegaderm. 14:48:30 Post-procedure physical assessment completed. ASA score P 3 - A patient with severe systemic disease as per Pradip Quiros MD. 14:48:32 Post procedure rhythm: sinus rhythm 14:48:35 Estimated blood loss: 10 ml 14:48:36 Post procedure instruction explained to patient.Patient verbalizes understanding. 14:48:36 Patient needs reinforcement of post procedure teaching. 14:49:05 Procedure type changed to Cath procedure, Diagnostic procedure, LHC, [facility] w/Coronaries, FFR/IVUS, FFR Initial, FFR Additional, Sedation Charges, Moderate Sedation up to 15 minutes, PCI procedure, Coronary Stent, Coronary Stent Initial x2, Hemochron ACT Test 14:49:51 Procedure and supply charges have been captured, reviewed, submitted and are correct. 14:49:53 Procedure Complication : No complications 14:49:57 [facility] Findings: MVD- PCI performed (see procedure note) 14:49:59 Operative report dictated upon procedure completion. 14:50:00 See physician's report for complete and final results. 15:02:23 Plavix 600 mg P.O. was administered by All Workman RN; for antiplatelet therapy; Verbal order read back and verified. 15:02:30 Vital chart was stopped 15:02:35 Report given to [facility]. 15:02:39 Patient transfered to [facility] with Bed. 15:03:18 FEMSTOP Gold ([id number]) opened to sterile field. 15:03:25 Femstop placed over the right femoral artery at 172 mmHg. Hemostasis achieved. 15:03:45 Procedure ended. 15:03:45 Full Disclosure recording stopped 15:04:09 End room use (Document Last) 15:07:32 Clonidine 0.2 mg P.O. was administered by All Workman RN; for hypertension; Verbal order read back and verified. 15:10:09 End room use (Document Last) 15:10:33 End room use (Document Last) Intervention Summary Intervention Notes Time ActionType Lesion and Equipment Used Action# Pressure Duration Attributes 14:37:05 Place stent Dist RCA GARETT RX 3.0 x 1 13 00:00 15 stent ([id number]) 14:37:34 Reinflate Dist RCA GARETT RX 3.0 x 2 11 00:00 stent 15 stent balloon ([id number]) 14:39:56 Place stent Dist RCA GARETT RX 2.75 x 3 13 00:00 38 stent ([id number]) 14:43:33 Reinflate Mid LAD GARETT RX 3.0 x 1 13 00:00 stent 15 stent balloon ([id number]) 14:45:11 Place stent Mid LAD GARETT RX 2.75 x 2 21 00:00 22 stent ([id number]) Device Usage Item Name Manufacture Quantity Catalog Number Hospital Part Current Minimal Lot# / Charge Number Stock Stock Serial# Code ACIST Syringe Acist 1 66467 351678 518373 719881 20 (65518) Medical Systems Inc Bag Decanter Microtek 1 2001S 169905 84466 782439 5 (2001S) Medical Inc. ACIST Hand Acist 1 72426 137224 723587 538535 5 Control Medical (04297) Systems Inc ACIST Manifold Acist 1 91381 557608 550519 496223 5 (43509) Medical Systems Inc Tegaderm 4 x 4 3M 1 1626W 655421 364499 337732 5 (1626W) Medline Cath Medline 1 [id number] 341470 87693 852962 5 Pack ([id number]) DIAGNOSTIC Cardinal 1 NF5643 663491 32045 041511 30 Multipack 5Fr Health catheter set (DW7066) SHEATH 5FR Terumo 1 FJN311 694042 578511 820867 5 [place] (UBT013) EMERALD Guide Cardinal 1 502-455 881786 697830 857573 5 Wire (502-147) Health MULTIPACK Cardinal 1 741620 5 Pigtail 5 Fr Health catheter MULTIPACK JL Cardinal 1 899317 5 4.0 5Fr Health catheter MULTIPACK 3DRC Cardinal 1 012858 5 5Fr catheter Health SHEATH 6FR Terumo 1 YVE434 708718 761997 511211 40 [place] (EPZ659) [place] Yamhill 1 52202L 682322 374180988 230528 5 Verrata Plus pressure wire (22175Y) INFLATOR Merit Merit 1 QX7471 107319 047985 618040 15 BasInvisalert SolutionsakTideland [employer] Corporation Medical (JR0474) GUIDE 6FR EBU Medtronic 1 PH2LRX79 251767 06715 047861 3 3.5 catheter (LN4ULK26) GUIDE 6FR HS Medtronic 1 [id number] 506284 65674 859848 1 II catheter (JO7ZBGZ) GARETT RX 3.0 x Medtronic 1 [id number] 530382 3672134 928882 5 [id number] 15 stent ([id number]) GARETT RX 2.75 x Medtronic 1 [id number] 481581 1510186 262005 5 [id number] 38 stent ([id number]) CHOICE PT [place] 1 [id number] 376828 844037 724325 5 Extra Support Scientific 182cm wire ([id number]) GARETT RX 2.75 x Medtronic 1 [id number] 264597 7125438 085279 5 [id number] 22 stent ([id number]) EXOSEAL 6Fr Cardinal 1 EX600 513792 277746 391074 10 (EX600) Health FEMSTOP Gold St Cj 1 [id number] 112234 411898 280691 5 ([id number]) Signature Audit [place] Stage Time Signature Unsigned Intra-Procedure 05/08/2019 Ruchi Le 3:10:09 PM RT(R) Intra-Procedure 05/08/2019 All Workman 3:10:33 PM RN Intra-Procedure 05/08/2019 Pradip Quiros 3:10:50 PM [facility] [address] [place] [address]
--- NOTE | 2019-05-06 19:05 | NUR ---
ADMIT TO ROOM 2116 FROM [place] [facility] PER EMS. PT ALERT/ORIENTED. SOME FAMILY IN ATTENDANCE. SALINE LOCK TO LEFT WRIST. RIGHT UPPER ARM AVF THAT IS CURRENTLY ACCESSED FROM WHEN HE WAS IN HEMODIALYSIS IN [place]. ONE LINE IS CAPPED AND CLAMPED. OTHER LINE IS CLAMPED WITH NO CAP. ADMISSION ASSESSMENT AND HISTORY COMPLETED. PLACED CALL TO LESLEY UBALDO AT 1905 AND NOTIFIED THAT PT HAD ARRIVED FROM [facility] WITH HIS AVF ACCESSED, BLOOD BACKED UP IN TUBING. ALSO REVIEWED HANDWRITTEN ORDERS THAT CAME WITH PATIENT AND RECIEVED SOME NEW ORDERS. LESLEY WILL CONTACT TOWEL STRETCHER HEMODIALYSIS NURSE TO COME TO HOSPITAL AND DEACCESS HIS RIGHT AVF. PT IS COOPERATIVE AND PLEASANT. NO REPORTS OF CHEST PAIN OR DISCOMFORT. SR PER TELEMETRY.
--- NOTE | 2019-05-06 22:08 | NUR ---
[facility]EM[facility] NURSE ON UNIT AND PROVIDING CARE TO ACCESSED AVF. PT TOLERATED WELL.
[2019-05-06 22:14] LABS: BASOPHILS 0.2 % (0-2); EOSINOPHILS 0.7 % (0-7); HEMOGLOBIN 7.9 g/dL (13.5-17.5); IMMATURE GRANULOCYTES 0.5 % (0-5); LYMPHOCYTES 27.6 % (15-50); MCH 34.2 pg (26.0-34.0); MCHC 34.3 g/dL (31.0-37.0); MCV 99.6 fL (80.0-100.0); MEAN PLATELET VOLUME 11.5 fL (7.4-10.4); MONOCYTES 13.4 % (2-11); NEUTROPHILS 57.6 % (40-80); PLATELET COUNT 106 10x3/uL (130-400); RBC 2.31 10x6/uL (4.20-6.10); RDW 19.3 % (11.5-14.5); WBC 5.8 10x3/uL (4.8-10.8)
[2019-05-06 22:15] VITALS: BP 154/80; BMI 21.3
[2019-05-06 22:45] LABS: CALCIUM 7.1 mg/dL (8.5-10.1); CARBON DIOXIDE 25.8 mmol/L (21.0-32.0); CHLORIDE - SERUM 105 mmol/L (98-107); CKMB 1.3 U/L (0.0-3.6); CREATINE KINASE 48 UL (21-232); CREATININE - SERUM 7.1 mg/dL (0.6-1.3); POTASSIUM - SERUM 3.6 mmol/L (3.5-5.1); SODIUM 140 mmol/L (136-145); UREA NITROGEN 55 mg/dL (7-18); eGFR NON AFRICAN AMERICAN 9 mL/min (90-120)
[2019-05-06 22:46] LABS: CALC OSMOLALITY 298 mosm/kg (275-300); GLUCOSE 188 mg/dL (74-106)
[2019-05-06 22:48] LABS: TROPONIN-I 0.179 ng/mL (0.000-0.060)
[2019-05-06] MEDS ORDERED: HYDRALAZINE HCL25 MG PO (23:07)
--- NOTE | 2019-05-06 23:49 | NUR ---
OUT AMBULATING IN HALLWAY. DRINK PROVIDED. DENIES CHEST PAIN. BACK TO BED.
[2019-05-07 03:51] LABS: HEMATOCRIT 22.4 % (42.0-54.0); HEMOGLOBIN 7.6 g/dL (13.5-17.5); MCH 33.9 pg (26.0-34.0); MCHC 33.9 g/dL (31.0-37.0); MEAN PLATELET VOLUME 12.6 fL (7.4-10.4); PLATELET COUNT 107 10x3/uL (130-400); RBC 2.24 10x6/uL (4.20-6.10); RDW 19.8 % (11.5-14.5); WBC 6.4 10x3/uL (4.8-10.8)
[2019-05-07 04:00] VITALS: BP 178/71
[2019-05-07 04:37] LABS: ALKALINE PHOSPHATASE 95 U/L (46-116); ALT (SGPT) 25 U/L (10-68); BILIRUBIN - DIRECT 0.37 mg/dL (0.00-0.30); BILIRUBIN - INDIRECT 0.68 mg/dL (0.00-1.00); BILIRUBIN - TOTAL 1.05 mg/dL (0.2-1.3); CALCIUM 7.1 mg/dL (8.5-10.1); CARBON DIOXIDE 25.5 mmol/L (21.0-32.0); CHLORIDE - SERUM 105 mmol/L (98-107); CREATINE KINASE 41 UL (21-232); CREATININE - SERUM 7.6 mg/dL (0.6-1.3); POTASSIUM - SERUM 3.3 mmol/L (3.5-5.1); PROTEIN - SERUM 6.4 g/dL (6.4-8.2); SODIUM 141 mmol/L (136-145); UREA NITROGEN 56 mg/dL (7-18); eGFR NON AFRICAN AMERICAN 8 mL/min (90-120)
[2019-05-07 04:41] LABS: CALC OSMOLALITY 297 mosm/kg (275-300); GLUCOSE 111 mg/dL (74-106)
[2019-05-07 04:43] LABS: TROPONIN-I 0.253 ng/mL (0.000-0.060)
[2019-05-07 04:49] LABS: LYMPHOCYTES 32 % (15-50); MONOCYTES 22 % (2-11); NEUTROPHILS 46 % (40-80); PLATELET ESTIMATE DECREASED
--- NOTE | 2019-05-07 06:30 | NUR ---
PT HAS RESTED WITH NO DISTRESS THROUGH THE NIGHT. NO ISSUES WITH HIS LEFT AVF. REPORT TO ONCOMING NURSE. CPOC.
--- NOTE | 2019-05-07 07:15 | NUR ---
RECEIVED PT IN BED EYES CLOSED RESP UNLABORED SKIN W/D NAD NOTED
[2019-05-07 08:19] VITALS: BP 185/77
[2019-05-07 09:53] LABS: CKMB 0.9 U/L (0.0-3.6); CREATINE KINASE 45 UL (21-232); PHOSPHOROUS 5.4 mg/dL (2.5-4.9)
[2019-05-07 09:54] LABS: TROPONIN-I 0.182 ng/mL (0.000-0.060)
--- NOTE | 2019-05-07 10:19 | NUR ---
DR OWUSU HERE FOR CONSULT
[2019-05-07 11:48] VITALS: BP 182/79
[2019-05-07 16:33] LABS: UDS - AMPHET NEGATIVE QUAL (NEGATIVE); UDS - BARB NEGATIVE QUAL (NEGATIVE); UDS - BENZO NEGATIVE QUAL (NEGATIVE); UDS - COCAINE NEGATIVE QUAL (NEGATIVE); UDS - OPIATE POSITIVE QUAL (NEGATIVE); UDS - PCP NEGATIVE QUAL (NEGATIVE); UDS - THC NEGATIVE QUAL (NEGATIVE)
[2019-05-07 16:44] VITALS: BP 177/83
--- NOTE | 2019-05-07 16:45 | NUR ---
UNIT OF PRBCs INFUSION STARTED AT THIS TIME PT DENIES ANY PAIN OR DISCOMFORT NO S/S OF REACTION PT TOLERATING WELL
--- NOTE | 2019-05-07 19:30 | NUR ---
REPORT AND INITIAL ROUNDS COMPLETED. 1 UNIT OF PRBCS NEARING COMPLETION. TOLERATING WELL. BP ELEVATED, DUE FOR BEDTIME MEDS SERENA. CPOC.
[2019-05-07 20:00] VITALS: BP 207/101
--- NOTE | 2019-05-07 23:17 | NUR ---
PT COMPLETED HIS HIBICLENS SHOWER. CONSENTS SIGNED FOR AM HEART CATH/ANGIOGRAM. NO NEEDS. DENIES PAIN. CALL LIGHT IN REACH. CPOC.
[2019-05-08] VITALS: BP 201/84
[2019-05-08 04:00] VITALS: BP 212/94
[2019-05-08 05:34] LABS: BASOPHILS 0.1 % (0-2); EOSINOPHILS 1.3 % (0-7); HEMOGLOBIN 8.9 g/dL (13.5-17.5); IMMATURE GRANULOCYTES 0.3 % (0-5); LYMPHOCYTES 24.1 % (15-50); MCH 33.3 pg (26.0-34.0); MCHC 34.2 g/dL (31.0-37.0); MEAN PLATELET VOLUME 11.4 fL (7.4-10.4); MONOCYTES 13.8 % (2-11); NEUTROPHILS 60.4 % (40-80); PLATELET COUNT 91 10x3/uL (130-400); RBC 2.67 10x6/uL (4.20-6.10); RDW 19.6 % (11.5-14.5); WBC 6.9 10x3/uL (4.8-10.8)
[2019-05-08 06:13] LABS: ALBUMIN 2.1 g/dL (3.4-5.0); ANION GAP 13.8 mmol/L (8-16); BILIRUBIN - TOTAL 0.65 mg/dL (0.2-1.3); CALCIUM 7.1 mg/dL (8.5-10.1); CARBON DIOXIDE 23.6 mmol/L (21.0-32.0); CREATININE - SERUM 8.8 mg/dL (0.6-1.3); PHOSPHOROUS 4.2 mg/dL (2.5-4.9); POTASSIUM - SERUM 3.4 mmol/L (3.5-5.1); PROTEIN - SERUM 6.5 g/dL (6.4-8.2)
[2019-05-08 06:20] LABS: INR 1.05 (0.85-1.17); PROTIME 13.2 SECONDS (11.6-15.0)
[2019-05-08 06:39] LABS: MCV 97.4 fL (80.0-100.0)
[2019-05-08 09:20] VITALS: BP 216/102
--- NOTE | 2019-05-08 11:54 | NUR ---
B/P CALLED TO [facility]. NEW ORDERS GIVEN.
[2019-05-08 12:10] VITALS: BP 209/94
--- NOTE | 2019-05-08 14:05 | NUR ---
PRE-OPS GIVEN. TO BUSINESS SUPERVISOR BY BED.
[2019-05-08 14:30] VITALS: Ht 165.1 cm; Wt 58.1 kg
--- NOTE | 2019-05-08 15:43 | NUR ---
BACK FROM BUSINESS OPERATIONS SPECIALIST. RIGHT GROIN STABLE WITH FEMSTOP INTACT. WILL MONITOR.
--- NOTE | 2019-05-08 17:50 | NUR ---
ATTEMPTED TO DC FEMSTOP. ACTIVE BLEEDING NOTED. FEMSTOP REAPPLIED. WILL CONT. TO MONITOR.
[2019-05-08 17:56] VITALS: BP 198/97
--- NOTE | 2019-05-08 19:37 | NUR ---
RECEIVED BEDSIDE REPORT. PATIENT IS ALERT AND ORIENTED, RESTING COMFORTABLY IN BED. RESPIRATIONS ARE EVEN AND UNLABORED. NO S/S OF DISTRESS. NO C/O PAIN. CALL LIGHT WITHIN REACH. WILL CPOC.
[2019-05-08 20:00] VITALS: BP 172/88
--- NOTE | 2019-05-08 20:27 | NUR ---
RELEASED PRESSURE FROM FEMSTOP. NO S/S OF BLEEDING, HEMATOMA, AREA AROUND INSERTION SITE SOFT. NO S/S OF DISTRESS.
--- NOTE | 2019-05-08 21:25 | NUR ---
RELEASED FEMSTOP NO SIGNS OF BLEEDING. RIGHT GROIN INSERTION SITE SOFT, NO SIGNS OF HEMATOMA OR BRUISING.
--- NOTE | 2019-05-09 00:24 | NUR ---
PATIENT APPEARS TO BE SLEEPING. RESPIRATIONS ARE EVEN AND UNLABORED. NO S/S OF DISTRESS. CALL LIGHT WITHIN REACH. WILL CPOC.
[2019-05-09 00:33] VITALS: BP 184/86
--- NOTE | 2019-05-09 00:36 | NUR ---
BP 184/86 PRN CLONIDINE GIVEN.
--- NOTE | 2019-05-09 03:46 | NUR ---
PATIENT APPEARS TO BE SLEEPING. RESPIRATIONS ARE EVEN AND UNLABORED. NO S/S OF DISTRESS. CALL LIGHT WITHIN REACH. WILL CPOC.
[2019-05-09 04:00] VITALS: BP 188/87
--- NOTE | 2019-05-09 04:46 | NUR ---
BP 188/87 PRN CLONIDINE GIVEN.
[2019-05-09 07:37] LABS: ALBUMIN 1.9 g/dL (3.4-5.0); ANION GAP 18.1 mmol/L (8-16); BILIRUBIN - TOTAL 0.61 mg/dL (0.2-1.3); CALCIUM 7.3 mg/dL (8.5-10.1); CARBON DIOXIDE 20.6 mmol/L (21.0-32.0); CREATININE - SERUM 10.3 mg/dL (0.6-1.3); POTASSIUM - SERUM 3.7 mmol/L (3.5-5.1)
[2019-05-09 07:48] LABS: BASOPHILS 0 % (0-2); EOSINOPHILS 1.2 % (0-7); HEMATOCRIT 24.5 % (42.0-54.0); HEMOGLOBIN 8.3 g/dL (13.5-17.5); IMMATURE GRANULOCYTES 0.3 % (0-5); LYMPHOCYTES 14.6 % (15-50); MCH 33.2 pg (26.0-34.0); MCHC 33.9 g/dL (31.0-37.0); MEAN PLATELET VOLUME 12.7 fL (7.4-10.4); MONOCYTES 13.8 % (2-11); NEUTROPHILS 70.1 % (40-80); PLATELET COUNT 105 10x3/uL (130-400); RDW 19.8 % (11.5-14.5); WBC 7.3 10x3/uL (4.8-10.8)
[2019-05-09 08:17] VITALS: BP 157/65
--- NOTE | 2019-05-09 10:35 | NUR ---
TELEMETRY SR. TO DIALYSIS BY W/C. WILL CONT. PLAN OF CARE.
[2019-05-09] MEDS ORDERED: PLAVIX75 MG PO (12:31)
--- NOTE | 2019-05-09 14:12 | NUR ---
BACK FROM DIALYSIS. WILL CONT. PLAN OF CARE.
--- NOTE | 2019-05-09 15:04 | NUR ---
IV AND TELEMETRY DCD. DC PLANS GIVEN. UNDERSTANDING VOICED. ESCORTED TO CAR BY W/C.
--- NOTE | 2019-05-11 09:08 | MORECARE ---
CASE MANAGEMENT DISCHARGE SUMMARY PATIENT: ANTONIO WAKEFIELD UNIT: [id number] ADM DATE: 05/06/19 AGE: 54 : 63 SEX: M ROOM/BED: D.2117 AUTHOR: ROB DAVENPORT PHYSICIAN: REFERRING PHYSICIAN: PAO CHAVEZ MD DATE OF SERVICE: 05/11/19 Discharge Plan Patient Name: ANTONIO WAKEFIELD Facility: [facility]:[place] : 1965 Planned Disposition: Home Anticipated Discharge Date: 05/09/19 Discharge Date: 05/09/2019 Expected LOS: 3 Initial Reviewer: [email or web address] Initial Review Date: 05/11/2019 Generated: 05/11/19 10:08 am Patient Name: ANTONIO WAKEFIELD Page 36053 at 0908 All edits/amendments must be made on the electronic document DICTATION DATE: 05/11/19907 GLOBAL POSITION SYSTEM TECHNICIAN: SOHA 05/11/19907 RPT#: [id number] DC DATE:05/09/19 STATUS: DIS IN [facility] [address] [place] [address] END OF REPORT
== END 2019-05-09 15:05 | disposition home or self-care (01) | DRG 246 ==
LOC: D.M2 18:00
PROVIDERS: Internal Medicine Interventional Cardiology; ADMIT Internal Medicine Nephrology; ATTEND Internal Medicine Nephrology
PROC: 4A023N7 Measurement of Cardiac Sampling and Pressure, Left Heart, Percutaneous Approach (ICD-10-PCS; 2019-05-08)
PROC: B2111ZZ Fluoroscopy of Multiple Coronary Arteries using Low Osmolar Contrast (ICD-10-PCS; 2019-05-08)
PROC: B2151ZZ Fluoroscopy of Left Heart using Low Osmolar Contrast (ICD-10-PCS; 2019-05-08)
PROC: 027136Z Dilation of Coronary Artery, Two Arteries with Three Drug-eluting Intraluminal Devices, Percutaneous Approach (ICD-10-PCS; principal; 2019-05-08 14:30)
PROC: 4A033BC Measurement of Arterial Pressure, Coronary, Percutaneous Approach (ICD-10-PCS; 2019-05-08 14:30)
DX: I21.4 Non-ST elevation (NSTEMI) myocardial infarction (principal); N18.6 End stage renal disease; I42.9 Cardiomyopathy, unspecified; I12.0 Hypertensive chronic kidney disease with stage 5 chronic kidney disease or end stage renal disease; I25.110 Atherosclerotic heart disease of native coronary artery with unstable angina pectoris; D63.1 Anemia in chronic kidney disease; D69.6 Thrombocytopenia, unspecified